=== PATIENT | female | born 1945 | race Caucasian/White ===

== ENCOUNTER → 2017-04-13 | Outpatient (CLI) | payer MEDICARE ==
[~2017-04-13] MED LIST: DORZ1SOL LEFT EYE; DORZ1SOL2 OS; ENAL10TA PO; ENAL10TA7 PO; SIMV40TA PO; TEMA15CA PO; ZOCO40TA PO
[2017-04-13 11:28] LABS: AUTOMATED NEUTROPHIL # 7.8 TH/MM3 (1.8-7.7); BASOPHIL % 0.4 % (0.0-2.0); EOSINOPHIL # 0.2 TH/MM3 (0-0.4); EOSINOPHIL % 1.7 % (0.0-4.0); HEMATOCRIT 36.2 % (35.0-46.0); HEMO FLAGS DIFF FINAL; LYMPH % 15.9 % (9.0-44.0); LYMPHOCYTE # 1.6 TH/MM3 (1.0-4.8); MEAN CELL VOLUME 90.7 FL (80.0-100.0); MEAN CORPUSCULAR HEMOGLOBIN 30.8 PG (27.0-34.0); MONO % 5.1 % (0.0-8.0); NEUT % 76.9 % (16.0-70.0); PLATELET COUNT 230 TH/MM3 (150-450); RED BLOOD COUNT 3.99 MIL/MM3 (4.00-5.30); WHITE BLOOD COUNT 10.1 TH/MM3 (4.0-11.0)
[2017-04-13 11:48] LABS: BICARBONATE 27.3 MEQ/L (21.0-32.0)
[2017-04-13 12:35] LABS: BACTERIA, URINE MOD /hpf; BLOOD, URINE MOD (NEG); GLUCOSE,URINE NEG (NEG); KETONE, URINE NEG (NEG); MUCUS URINE FEW /lpf (OCC); NITRITE,URINE POS (NEG); PH, URINE 5.5 (5.0-8.5); SQUAMOUS EPITHELIAL CELL URINE 14 /hpf (0-5); URINE COLOR YELLOW (YELLW/STRAW)
--- NOTE | 2017-04-14 15:55 | EKG ---
Date Performed: 04/13/2017 Time Performed: 10:52:43 PTAGE: 71 years EKG: SINUS BRADYCARDIA BORDERLINE ECG NO PREVIOUS TRACING DOCTOR: Amanda Bonilla Interpretating Date/Time 04/14/2017 15:47:30
== END ==
LOC: CPRE 10:30
PROVIDERS: ATTEND Obstetrics & Gynecology
DX: Z01.812 Encounter for preprocedural laboratory examination (principal); Z01.810 Encounter for preprocedural cardiovascular examination; N87.9 Dysplasia of cervix uteri, unspecified; R00.1 Bradycardia, unspecified
CPT/HCPCS: 36415; 80048; 81001; 85025; 93005

== ENCOUNTER 2017-04-16 05:21 | Observation (INO) | payer MEDICARE ==
--- NOTE | 2017-04-15 07:38 | MH ---
cc: SHIRA STEINBERG Corrected Copy: 04/16/17 DATE OF ADMISSION: 04/16/2017 DATE OF 1945 SCHEDULED PROCEDURE LAVH/BSO. INDICATION Persistent dysplasia in a 71-year-old. Distant history of bladder lift in her 40s. HISTORY OF PRESENT CONDITION The patient is a very active, very young appearing 71-year-old white female, P 4, who has decided to have a hysterectomy for her recurrent dysplasia. She incurred severe pelvic floor injury with her third child. She states he was sideways and they had to force him out. She is very worried about the bladder surgery that she had in [place] at 45 that was done abdominally and has held all these years. She does not want this compromised. She does not have any significant incontinence. She does have some urgency. She does not smoke, drink or use illicit drugs. She dances rigorously every week, eats healthy, has good energy and is not on any hormone therapy. She has mild hypertension, mild anxiety and mild hyperlipidemia. MEDICATIONS 1. Enalapril 10 milligrams. 2. Clonazepam 0.5 milligrams at night. 3. Simvastatin 40 milligrams. 4. Temazepam 30 milligrams. 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 REVIEW OF SYSTEMS Otherwise negative. FAMILY HISTORY Noncontributory. PHYSICAL EXAMINATION Her weight is 123. Her height is 5'6." VITAL SIGNS: Her blood pressure is 118/68. ALLERGIES: SHE HAS AN ALLERGY TO MACRODANTIN. NECK: She has no thyroid enlargement. LUNGS: Her lungs were clear to auscultation. HEART: Rate and rhythm are regular. ABDOMEN: Abdomen is flat. DIRECTED EXAMINATION: Perineum is not estrogenized. Vault shows moderate descent. Visually no significant cystocele. The cervix is multiparous and damaged. The uterus is small, mobile. The ovaries are small. There is no significant rectocele. Guaiac was negative. EXTREMITIES: Unremarkable. IMPRESSION Recurrent dysplasia in a 71-year-old desires of definitive therapy. History of prior extensive bladder surgery that has held up since. PLAN The plan is to proceed with LAVH/BSO. The risks, benefits, expectations, impact on bladder have been discussed in detail. She has signed consents and is scheduled for . MD MONA Wesley/EO /10:42 AM /12:55 PM
[~2017-04-16] VITALS: Ht 170.2 cm; Wt 62.5 kg
[~2017-04-16 05:21] MED LIST changes: -DORZ1SOL2 OS; -ENAL10TA7 PO; -ZOCO40TA PO
[2017-04-16] MEDS ORDERED: SODIUM CHLORID 0.9% 500 ML IV PRN (05:45)
[2017-04-16] MEDS ORDERED: INSULIN HUMAN REGULAR 1,000 UNITS/10 ML VIAL SQ PRN (05:45)
[2017-04-16] MEDS ORDERED: METOPROLOL TARTRATE 25 MG TAB PO PRN (05:45)
[2017-04-16] MEDS ORDERED: CHLORHEXIDINE GLUCONATE 2 % 1 PACK (2 CLOTHS) TOPICAL PRN (05:45)
[2017-04-16] MEDS ORDERED: POVIDONE IODINE 5% (ANTISEPSIS KIT) 4 APPLICATIONS EACH NARE PRN (05:45)
[2017-04-16] MEDS ORDERED: LACTATED RINGER'S 1000 ML IV PRN (05:45)
[2017-04-16] MEDS ORDERED: SODIUM CHLORIDE 0.9% 20 ML VIAL ONE (06:10)
[2017-04-16] MEDS ORDERED: VASOPRESSIN 20 UNITS/ML VIAL (IVTITR) ONE (06:10)
[2017-04-16] MEDS ORDERED: ESTROGENS CONJUGATED VAG CREA 15 APPL/30 GM TUBE ONE (06:10)
[2017-04-16 06:17] VITALS: BP 123/64; PULSE 68; RESP 18; TEMP 98; O2SAT 98
[2017-04-16] MEDS ORDERED: ceFAZolin 1,000 MG/NS 100 ML IV SCH ×2 (06:30)
[2017-04-16] MEDS ORDERED: BUPIVACAINE/EPINEPHRINE 0.5% PF 30 ML VIAL ONE (06:33)
[2017-04-16] MEDS ORDERED: ACETAMINOPHEN 1000 MG/100 ML VIAL IV ONE (07:16)
[2017-04-16] MEDS ORDERED: MIDAZOLAM HCL 2 MG/2 ML VIAL ONE (09:47)
[2017-04-16] MEDS: LACTATED RINGER'S 1000 ML INJ 1,000 ML IV SCH (09:47)
--- NOTE | 2017-04-16 09:52 | PD.OP ---
Operative Report Date of Surgery: Apr 16, 2017 Preoperative Diagnosis: Cervical dysplasia Postoperative Diagnosis: same. enterocele Procedure: LAVHBSO enterocele repair, cystoscopy Surgeon: Mary Leyva American History Professor(s): Sienna GOMES-2 Operation and Findings: Mary Larry MD Apr 16, 2017 09:52
[2017-04-16] MEDS ORDERED: *morphine SULFATE 8 MG/ML PERIprocedure ONLY ONE ×2 (09:58→10:24)
[2017-04-16] MEDS: DOCUSATE SODIUM 100 MG CAP PO SCH ×2 (10:00→20:07)
[2017-04-16] MEDS ORDERED: diphenhydrAMINE HCL 25 MG CAP PO PRN (10:00)
[2017-04-16] MEDS ORDERED: TEMAZEPAM 15 MG CAP PO PRN (10:00)
[2017-04-16] MEDS ORDERED: HYDROmorphone HCL PF 1 MG/ML VIAL IVP PRN (10:00)
[2017-04-16] MEDS ORDERED: SODIUM CHLORIDE 0.9% FLUSH 10 ML FLUSH IV FLUSH PRN (10:00)
[2017-04-16] MEDS ORDERED: ONDANSETRON HCL 4 MG/2 ML VIAL IV PRN (10:00)
[2017-04-16] MEDS ORDERED: PROMETHAZINE INJ 25 MG/ML VIAL IM PRN (10:00)
[2017-04-16 12:00] VITALS: BP 106/69; PULSE 53; RESP 12; O2SAT 100
[2017-04-16 12:30] VITALS: TEMP 95.2
[2017-04-16] MEDS ORDERED: PROPOFOL 200 MG/20 ML AMP IV ONE (12:33)
[2017-04-16] MEDS ORDERED: ePHEDrine/NS 25 MG/5 ML SYR IV ONE (12:33)
[2017-04-16] MEDS ORDERED: ONDANSETRON HCL 4 MG/2 ML VIAL IV PUSH ONE (12:34)
[2017-04-16] MEDS ORDERED: METHYLENE BLUE 10 MG/ML VIAL IV ONE (12:44)
[2017-04-16] MEDS: oxyCODONE/ACETAMINOPHEN 5 MG/325 MG TAB PO PRN ×2 (15:59→20:13)
[2017-04-16 16:00] VITALS: BP 109/64; PULSE 56; RESP 12; TEMP 96.2; O2SAT 100
--- NOTE | 2017-04-16 18:41 | HHI.PR ---
Subjective Remarks NOS complaining she is feeling cold no pain until had to use spirometer 10/17 ernesto miller Objective Vital Signs Vital Signs Date Time Temp Pulse Resp B/P Pulse Ox O2 Delivery O2 Flow Rate FiO2 04/16/17 16:00 96.2 56 12 109/64 100 04/16/17 12:30 95.2 04/16/17 12:00 53 12 106/69 100 04/16/17 11:15 97.6 50 16 105/60 99 Nasal Cannula 2 04/16/17 11:00 47 16 101/57 99 Nasal Cannula 2 04/16/17 10:45 50 15 101/55 99 Nasal Cannula 2 04/16/17 10:30 47 15 95/50 100 Nasal Cannula 2 04/16/17 10:15 49 15 103/56 100 Nasal Cannula 2 04/16/17 10:00 57 15 106/59 100 Nasal Cannula 2 04/16/17 09:45 71 15 119/71 100 Nasal Cannula 3 04/16/17 09:35 97.4 71 15 126/66 99 Nasal Cannula 3 04/16/17 06:17 98.0 68 18 123/64 98 I/O 04/15/17 04/15/17 04/15/17 04/16/17 04/16/17 04/16/17 07:00 15:00 23:00 07:00 15:00 23:00 Intake Total 1500 ml 200 ml Output Total 700 ml Balance 800 ml 200 ml Intake Oral 200 ml IV Total 500 ml Other 1000 ml Output Urine Total 500 ml Estimated Blood Loss 200 ml # Bowel Movements 0 Objective Remarks Chest is clear, regular rate and rhythm. Abdomen is soft and non-distended. Incisions clean and dry. peripad minimal blood has no packing Ext no CCE. A/P Assessment and Plan NOS Doing well reviewed that her bladder was very large. Cystoscopy was normal. States she was told 40 years ago at original bladder surgery that she would always have trouble emptying her bladder. Explained that TOT was not indicated and would have exacerbated retention and UTIs. Needs bladder training. may have retention issues even with no bladder procedure other than cystoscopy. Mary Leyva MD Apr 16, 2017 18:41
--- NOTE | 2017-04-16 18:45 | HHI.DCPOC ---
Discharge Care Plan Report Symptoms to Your Doctor -Temperature above 100.5 degrees -Redness, of incision or excessive or foul smelling drainage -Unusual pain or calf pain -Increased vaginal bleeding -Painful or difficulty urinating -Feelings of extreme sadness or anxiety after 2 weeks Goals to Promote Your Health * To prevent worsening of your condition and complications * To maintain your health at the optimal level Directions to Meet Your Goals Take your medications as prescribed Follow your dietary instruction Follow activity as directed Ensure plenty of rest for recovery Drink fluids for hydration Keep your appointments as scheduled Take your immunizations and boosters as scheduled If your symptoms worsen call your PCP, if no PCP go to Urgent Care Center or Emergency Room Smoking is Dangerous to Your Health. Avoid second hand smoke Call the 24-hour crisis hotline for domestic abuse at Mary Leyva MD Apr 16, 2017 18:45
[2017-04-16] MEDS: ONDANSETRON HCL 4 MG/2 ML VIAL IVP PRN (18:56)
[2017-04-16 20:00] VITALS: BP 111/68; PULSE 77; RESP 17; TEMP 98.4; O2SAT 98
[2017-04-16] MEDS: SODIUM CHLORIDE 0.9% FLUSH 10 ML FLUSH IV FLUSH SCH (20:04)
[2017-04-16] MEDS: SULFAMETHOXAZOLE-TRIMETHOPRIM DS 800-160 MG TAB PO SCH (20:05)
[2017-04-16] MEDS ORDERED: ONDANSETRON INJ 8 MG in DEXTROSE 5% IN WATER INJ 50 ML IV PUSH PRN ×2 (20:15)
[2017-04-16] MEDS ORDERED: ONDANSETRON INJ 8 MG in DEXTROSE 5% IN WATER INJ 50 ML IV PRN ×2 (20:16)
[2017-04-17] VITALS: BP 116/64; PULSE 85; RESP 17; TEMP 99.7; O2SAT 95
[2017-04-17] MEDS: oxyCODONE/ACETAMINOPHEN 5 MG/325 MG TAB PO PRN (00:16)
[2017-04-17] MEDS: LACTATED RINGER'S 1000 ML INJ 1,000 ML IV SCH (01:47)
[2017-04-17 04:00] VITALS: BP 120/57; PULSE 98; RESP 17; TEMP 99; O2SAT 98
[2017-04-17] MEDS: ONDANSETRON HCL 4 MG/2 ML VIAL IVP PRN ×2 (04:29→19:22)
[2017-04-17] MEDS: IBUPROFEN 600 MG TAB PO PRN ×3 (04:34→19:22)
[2017-04-17 08:00] VITALS: BP 111/75; PULSE 91; RESP 16; TEMP 98.2; O2SAT 95
[2017-04-17] MEDS: SULFAMETHOXAZOLE-TRIMETHOPRIM DS 800-160 MG TAB PO SCH ×2 (09:00→19:26)
[2017-04-17] MEDS: DOCUSATE SODIUM 100 MG CAP PO SCH ×2 (09:00→19:28)
[2017-04-17] MEDS: TAMSULOSIN HCL 0.4 MG CAP PO SCH (09:01)
[2017-04-17] MEDS: SODIUM CHLORIDE 0.9% FLUSH 10 ML FLUSH IV FLUSH SCH ×2 (09:05→19:26)
[2017-04-17 09:52] LABS: AUTOMATED NEUTROPHIL # 7.4 TH/MM3 (1.8-7.7); BASOPHIL % 0.1 % (0.0-2.0); HEMATOCRIT 32.3 % (35.0-46.0); HEMO FLAGS DIFF FINAL; LYMPH % 6.4 % (9.0-44.0); LYMPHOCYTE # 0.5 TH/MM3 (1.0-4.8); MEAN CELL VOLUME 90.4 FL (80.0-100.0); MEAN CORPUSCULAR HEMOGLOBIN 30.7 PG (27.0-34.0); MEAN CORPUSCULAR HGB CONC 33.9 % (32.0-36.0); MONO % 2.2 % (0.0-8.0); NEUT % 91.3 % (16.0-70.0); PLATELET COUNT 201 TH/MM3 (150-450); RED BLOOD COUNT 3.57 MIL/MM3 (4.00-5.30); RED CELL DISTRIBUTION WIDTH 12.6 % (11.6-17.2); WHITE BLOOD COUNT 8.1 TH/MM3 (4.0-11.0)
[2017-04-17 10:23] LABS: BICARBONATE 26.8 MEQ/L (21.0-32.0); POTASSIUM 3.6 MEQ/L (3.5-5.1)
[2017-04-17 12:00] VITALS: BP 103/62; PULSE 96; RESP 18; TEMP 99.2; O2SAT 94
--- NOTE | 2017-04-17 12:57 | HHI.PR ---
Subjective Remarks Seen at 7:30 when she was lying down. catheter just removed. mild discomfort only. Had not yet voided. refused the bactrim because she says it made her feel ill last week when I prescribed for a UA consistent with significant UTI--large amount of leuks and nitrates She is allergic to levaquin and macrodantin apparently. Wanted cipro and I explained its similarity to levaquin in the the office and she agreed to take zithromax. I told her it was ok, since she had antibitoics IV during surgery. We reviewed restrictions and when to call and she was prepared for discharge. Her nurse called around noon stating she has significant nausea and may want to stay. She has only voided 25 cc which she attributes to continuing UTI and wants a culture. I had explained in great detail to her that she has a markedly hypotonic bladder. It was noted on laparoscopy to be very distended even with the oneill in place and we compressed it to empty it and gain visualization, I explained the surgery will not help this and that a "bladder tuck" would have exacerbated retention and UTIs. She stated she was told 40 years ago she would always have difficulty emptying her bladder. Given flomax this am. Objective Vital Signs Vital Signs Date Time Temp Pulse Resp B/P Pulse Ox O2 Delivery O2 Flow Rate FiO2 04/17/17 06:12 20 04/17/17 04:00 99.0 98 17 120/57 98 04/17/17 01:30 20 04/17/17 00:00 99.7 85 17 116/64 95 04/16/17 21:00 20 04/16/17 20:00 98.4 77 17 111/68 98 04/16/17 16:00 96.2 56 12 109/64 100 I/O 04/16/17 04/16/17 04/16/17 04/17/17 04/17/17 04/17/17 07:00 15:00 23:00 07:00 15:00 23:00 Intake Total 1500 ml 200 ml 2761 ml Output Total 700 ml 250 ml Balance 800 ml 200 ml 2511 ml Intake Oral 200 ml IV Total 500 ml 2761 ml Other 1000 ml Output Urine Total 500 ml 250 ml Estimated Blood Loss 200 ml # Bowel Movements 0 # Sanitary Pads 1 Pads Result Diagram: 04/17/1791204/17/17912 Objective Remarks Chest is clear, regular rate and rhythm. Abdomen is soft and non-distended. Incisions clean and dry. peripad minimal blood has no packing Ext no CCE. A/P Assessment and Plan Will order culture, since one was not done with pre op UA and antibiotic use was emperic but likely will be affected by the pre op antibiotic. Will add bethanecol 10 mg TID NOT with food. may need to stay overnight. Mary Leyva MD Apr 17, 2017 12:57
[2017-04-17] MEDS: BETHANECHOL CHL 10 MG TAB PO SCH ×2 (14:57→21:33)
[2017-04-17 16:00] VITALS: BP 107/61; PULSE 96; RESP 18; TEMP 98.9; O2SAT 95
--- NOTE | 2017-04-17 18:26 | MP ---
cc: IDRISSHIRA DATE OF SURGERY 04/16/17 POSTOPERATIVE DIAGNOSIS Persistent dysplasia, secondary diagnosis of hypotonic bladder and recurrent urinary tract infection. PROCEDURE Laparoscopically assisted vaginal hysterectomy with bilateral salpingo-oophorectomy, enterocele obliteration and cystoscopy. ANESTHESIA General endotracheal SURGEON Sheldon Leyva MD HEAD OF INSIGHT [employer] [employer] student. FINDINGS Examination under anesthesia revealed a very small uterus with mild degree of descent. No significant rectocele or cystocele noted. Upon entering into the peritoneal cavity, liver edge and gallbladder were normal. There was some definite scarring of the liver. The appendix was normal. The uterus was small, mobile, tubes and ovaries were unremarkable. She apparently had had some significant bladder elevation at 39 years of age, but I really was not able to identify the type of surgery that was done. Otherwise, no significant scarring from it. She did have a right inguinal hernia incidentally. The upper portion of the procedure was uneventful and then from below the uterus, tubes and ovaries were removed. Cystoscopy was performed which showed no iatrogenic injury or intrinsic pathology. There was ureteral peristalsis noted intraperitoneally and also on cystoscopy no obvious stones or diverticula or anything to suggest why she has these recurrent urinary tract infections other than a large hypotonic bladder and probable retention. Estimated blood loss was 50 mL. Sponge, instrument, needle count correct. She tolerated the procedure well and she went to the recovery room stable. PROCEDURE IN DETAIL The patient was identified as Yasmine Santacruz in holding. We reviewed her consent in great detail to make sure she was comfortable with the uterus, tubes and ovaries being removed. At that point, she asked about bladder surgery. We told her we would evaluate upon entering the peritoneal cavity and vaginal evaluation. She was taken to the room, placed under general endotracheal anesthesia in the dorsal lithotomy position. She was prepped and draped in the usual sterile fashion. A time-out was performed. She had received 1 gram of Ancef IV. She had sequential stockings on and, after being prepped and draped, a Pereira catheter was placed under sterile conditions. An acorn tenaculum was placed in the cervical os and attention was directed to the abdomen. A 5 mm incision was made in the umbilicus and a 5 mm trocar and sleeve placed under direct visualization and 2 liters of CO2 were instilled into the peritoneal cavity and then another 5 mm incision was made in the right and left lower quadrants with transillumination, lidocaine and then placement of the trocars. Systematic evaluation of the abdominal pelvic cavity was performed with the findings as noted above. Then the harmonic scalpel was used to transect the right round ligament and then take the anterior leaf of the broad ligament off the lower uterine segment. Then the right tube and ovary were grasped, placed on medial traction and the infundibulopelvic ligament transected and successive pedicles were taken down to the level of the round ligament. The ureter was noted to be peristalsing and then the broad ligament was pushed down inferiorly and laterally continuously to push the ureter inferiorly and laterally. This was taken down to the uterosacrals on the right side and then the procedure was repeated in the same fashion on the left side. Then attention was directed to the perineum. The acorn was removed. The cervix was grasped with tenaculum and was infiltrated with I think Marcaine with epi and then circumcised with the Bovie on cutting. The anterior and posterior cul-de-sacs were entered sharply and then the curved Cipriano clamps were used to clamp, cut and suture ligate the uterosacrals and the successive pedicles up to removal of the uterine corpus, tubes and ovaries from the field. Bleeding was noted to be minimal. An aggressive enterocele repair was performed. Then the uterosacrals were plicated and the vaginal vault was closed with a running interlocking suture in a vertical fashion. Attention was directed to the abdomen again and the scope was placed. A copious lavage was performed. All pedicles were evaluated and hemostatic. There appeared to be no bleeding from any other raw peritoneal services and then Noah was placed. The pneumoperitoneum was released under direct visualization and incisions closed. Using the suction director apparel, the bladder was filled with 250 mL of saline and then the Pereira removed and the laparoscope placed into the bladder to systematically evaluate. Ureteral flow was seen from both ureteral orifices. There was no obvious pathology other than just . The catheter was then replaced after the scope was removed. She was placed in dorsal supine position, awaken and taken to the recovery room in stable condition. MD MONA Wesley/SA /9:36 AM /5:58 PM
[2017-04-17 20:00] VITALS: BP 107/62; PULSE 88; RESP 16; TEMP 98.7; O2SAT 95
[2017-04-18] VITALS: BP 110/55; PULSE 99; RESP 16; TEMP 99.8; O2SAT 93
[2017-04-18] MEDS: LACTATED RINGER'S 1000 ML INJ 1,000 ML IV SCH (00:36)
[2017-04-18] MEDS: LORazepam 0.5 MG TAB PO PRN ×2 (01:33→14:02)
[2017-04-18 04:00] VITALS: BP 111/61; PULSE 104; RESP 16; TEMP 99.1; O2SAT 93
[2017-04-18] MEDS: BETHANECHOL CHL 10 MG TAB PO SCH ×2 (05:22→13:58)
[2017-04-18] MEDS: ONDANSETRON HCL 4 MG/2 ML VIAL IVP PRN (07:15)
[2017-04-18 08:00] VITALS: BP 99/59; PULSE 103; RESP 14; TEMP 97.1; O2SAT 93
[2017-04-18] MEDS: SULFAMETHOXAZOLE-TRIMETHOPRIM DS 800-160 MG TAB PO SCH (09:00)
[2017-04-18] MEDS: DOCUSATE SODIUM 100 MG CAP PO SCH (09:31)
[2017-04-18] MEDS: TAMSULOSIN HCL 0.4 MG CAP PO SCH (09:31)
[2017-04-18] MEDS: IBUPROFEN 600 MG TAB PO PRN (09:31)
[2017-04-18 12:00] VITALS: BP 101/60; PULSE 105; RESP 16; TEMP 96.8; O2SAT 94
--- NOTE | 2017-04-18 15:46 | HHI.PR ---
Subjective Remarks Doing well, pain is well controlled, eating well. She is having some heartburn ever since the surgery. Objective Vital Signs Vital Signs Date Time Temp Pulse Resp B/P Pulse Ox O2 Delivery O2 Flow Rate FiO2 04/18/17 12:00 96.8 105 16 101/60 94 04/18/17 08:00 97.1 103 14 99/59 93 04/18/17 04:00 99.1 104 16 111/61 93 04/18/17 00:00 99.8 99 16 110/55 93 04/17/17 20:06 20 04/17/17 20:00 98.7 88 16 107/62 95 04/17/17 16:00 98.9 96 18 107/61 95 I/O 04/17/17 04/17/17 04/17/17 04/18/17 04/18/17 04/18/17 07:00 15:00 23:00 07:00 15:00 23:00 Intake Total 2761 ml 960 ml 240 ml 50 ml Output Total 250 ml 200 ml 360 ml Balance 2511 ml 760 ml -120 ml 50 ml Intake Oral 960 ml 240 ml 50 ml IV Total 2761 ml Output Urine Total 250 ml 200 ml 360 ml # Voids 8 2 4 # Bowel Movements 0 # Sanitary Pads 1 Pads Result Diagram: 04/17/1791204/17/17912 Objective Remarks Chest is clear, regular rate and rhythm. Abdomen is soft and non-distended. Incisions clean and dry. peripad minimal blood has no packing Ext no CCE. A/P Assessment and Plan POD #2 Heartburn will order some maalox and if it resolves she can go home, if not will ask medicine to see her to rule out any cardiac issues. Possible UTI will have her call the office Thursday to check the urine culture. Mild anemia will have her eat iron rich foods on discharge. Reji Teague MD Apr 18, 2017 15:46
[2017-04-18] MEDS: oxyCODONE/ACETAMINOPHEN 5 MG/325 MG TAB PO PRN (16:09)
[2017-04-18] MEDS ORDERED: ALUMINUM/MAGNESIUM/SIMETH 30 ML CUP PO ONE (16:15)
--- NOTE | 2017-04-18 18:45 | HHI.PR ---
Subjective Remarks the heartburn resolved with the maalox. Feeling better Objective Vital Signs Date Time Temp Pulse Resp B/P Pulse Ox O2 Delivery O2 Flow Rate FiO2 04/18/17 12:00 96.8 105 16 101/60 94 04/18/17 08:00 97.1 103 14 99/59 93 04/18/17 04:00 99.1 104 16 111/61 93 04/18/17 00:00 99.8 99 16 110/55 93 04/17/17 20:06 20 04/17/17 20:00 98.7 88 16 107/62 95 I/O 04/17/17 04/17/17 04/17/17 04/18/17 04/18/17 04/18/17 07:00 15:00 23:00 07:00 15:00 23:00 Intake Total 2761 ml 960 ml 240 ml 50 ml Output Total 250 ml 200 ml 360 ml Balance 2511 ml 760 ml -120 ml 50 ml Intake Oral 960 ml 240 ml 50 ml IV Total 2761 ml Output Urine Total 250 ml 200 ml 360 ml # Voids 8 2 4 # Bowel Movements 0 # Sanitary Pads 1 Pads Result Diagram: 04/17/1791204/17/1713 Assessment and Plan Assessment and Plan May go home and follow up with doctor in one week. Reji Teague MD Apr 18, 2017 18:45
== END 2017-04-18 20:47 | disposition home or self-care (01) ==
LOC: HSDC 05:21 → HSDI 09:50 → HOCB 11:58
PROVIDERS: ADMIT Obstetrics & Gynecology; ATTEND Obstetrics & Gynecology
DX: N87.9 Dysplasia of cervix uteri, unspecified (principal); N81.5 Vaginal enterocele; K40.90 Unilateral inguinal hernia, without obstruction or gangrene, not specified as recurrent; N70.91 Salpingitis, unspecified; N83.8 Other noninflammatory disorders of ovary, fallopian tube and broad ligament; N31.2 Flaccid neuropathic bladder, not elsewhere classified; N39.0 Urinary tract infection, site not specified; R11.0 Nausea; R12 Heartburn; D64.9 Anemia, unspecified; I10 Essential (primary) hypertension; E78.5 Hyperlipidemia, unspecified; F41.9 Anxiety disorder, unspecified; Z79.899 Other long term (current) drug therapy; Z87.440 Personal history of urinary (tract) infections
CPT/HCPCS: 00840; 00942; 57268; 58552; 80048; 85025; 86850; 86900; 86901; 87086; 88307; 94150; 96374; 96375; G0378; J0131; J0690; J2250; J2270; J2405; J2550; J3010; J7120